=== PATIENT | female | born 1950 ===

== ENCOUNTER 2025-04-03 17:05 | Emergency (ER) | payer MEDICARE ==
[2025-04-03] MEDS ORDERED: HYDROcodone/Acetaminophen 5/325 mg Tablet ONE (17:26)
== END 2025-04-03 20:03 | disposition home or self-care (01) ==
LOC: MADERS 17:05
DX: S42.241A 4-part fracture of surgical neck of right humerus, initial encounter for closed fracture (principal); I10 Essential (primary) hypertension; E03.9 Hypothyroidism, unspecified; Z79.890 Hormone replacement therapy; Z79.899 Other long term (current) drug therapy; W01.0XXA Fall on same level from slipping, tripping and stumbling without subsequent striking against object, initial encounter
CPT/HCPCS: 70450; 72125